=== PATIENT | female | born 1955 ===

== ENCOUNTER → 2023-05-04 | Outpatient (CLI) | payer MEDICARE ==
[~2023-05-04] MED LIST: ACETAMINOPHEN PO; ANASTROZOLE1 M1 PO; ASPIRIN ADULT L81 M1 PO; ATORVASTATIN CA80 M1 PO; COREG3.125 MG PO; Imdur SA60 MG PO; LASIX20 MG PO; NEURONTIN300 MG PO; NITROGLYCERIN0.4 MG SL; NOVOLOG FL100 UNIT/2 SC; PLAVIX75 M1 PO; PROTONIX40 MG PO; Synthroid,Levo50 MCG PO; TRESIBA FL200 UNIT/1 SQ; ZESTRIL20 MG PO
== END | disposition home or self-care (01) ==
LOC: CARD 01:13
PROVIDERS: ATTEND Internal Medicine Cardiovascular Disease
DX: R93.89 Abnormal findings on diagnostic imaging of other specified body structures (principal); I25.10 Atherosclerotic heart disease of native coronary artery without angina pectoris; R06.00 Dyspnea, unspecified; E11.9 Type 2 diabetes mellitus without complications